=== PATIENT | female | born 1960 | race Caucasian/White ===

== ENCOUNTER 2020-06-17 11:19 | Emergency (ER) | payer MEDICAID, OTHER ==
[~2020-06-17] VITALS: Ht 162.6 cm; Wt 82.0 kg
[2020-06-17] MEDS ORDERED: MAGNESIUM/ALUMINUM HYDROXIDE/SIMETHICONE 30ML UDC PO STA (11:51)
[2020-06-17] MEDS ORDERED: VISCOUS LIDOCAINE 2% 15 ML UDC PO STA (11:51)
[2020-06-17] MEDS ORDERED: LACTATED RINGERS 1,000 ML IV STA (11:53)
[2020-06-17] MEDS ORDERED: SODIUM CHLORIDE 0.9% 1,000 ML IV ONE (12:00)
[2020-06-17 12:41] LABS: BASOPHILS % 0.5 % (0.0-2.0); EOSINOPHILS % 3.9 % (0.0-5.0); HEMATOCRIT. 28.9 % (36.0-48.0); HEMOGLOBIN. 8.7 g/dL (12.0-16.0); LYMPHOCYTES % 23.9 % (20.0-50.0); MEAN CORPUSCULAR HEMOGLOBIN 17.1 pg (28.0-32.0); MEAN CORPUSCULAR VOLUME 56.8 fL (81.0-99.0); MEAN PLATELET VOLUME 8.6 fl (7.4-10.4); MONOCYTES % 8.1 % (2.0-8.0); NEUTROPHILS % 63.6 % (40.0-76.0); PLATELET 286 x1000/uL (130-400); RED BLOOD CELL COUNT 5.09 mill/uL (4.2-5.4); RED CELL DISTRIBUTION WIDTH 21.3 % (11.6-14.6)
[2020-06-17] MEDS ORDERED: ASPIRIN 325MG TABLET PO ONE (12:45)
[2020-06-17 12:48] LABS: CHLORIDE 106 mEq/L (98-107)
[2020-06-17 12:51] LABS: PROTHROMBIN TIME 10.2 sec (9.6-11.0)
[2020-06-17] MEDS ORDERED: MIDAZOLAM HCL 2 MG/2 ML VIAL IV ONE (13:00)
[2020-06-17 13:02] LABS: PLATELET ESTIMATE NORMAL
[2020-06-17] MEDS ORDERED: HYDROCODONE/ACETAMINOPHEN 5/325MG TABLET PO ONE (14:45)
[2020-06-17 15:29] LABS: CLARITY URINE TURBID (CLEAR); COLOR URINE YELLOW (YELLOW); KETONES URINE TRACE (NEGATIVE); LEUKOCYTE ESTERASE URINE 3+ (NEGATIVE); NITRITE URINE NEGATIVE (NEGATIVE); OCCULT BLOOD URINE 1+ (NEGATIVE); PH URINE 6.5 (4.5-8.0); PROTEIN URINE 1+ (NEGATIVE); SPECIFIC GRAVITY URINE 1.021 (1.005-1.030); UROBILINOGEN URINE 0.2 E.U./dL (0.2-1.0)
[2020-06-17] MEDS ORDERED: CEFTRIAXONE 1 G PREMIX 50 ML IV ONE (16:45)
[2020-06-17 20:36] VITALS: BP 138/68
== END 2020-06-17 20:34 ==
LOC: ER 11:19
DX: N12 Tubulo-interstitial nephritis, not specified as acute or chronic (principal); R07.89 Other chest pain; J44.9 Chronic obstructive pulmonary disease, unspecified; F14.10 Cocaine abuse, uncomplicated; Z88.8 Allergy status to other drugs, medicaments and biological substances
CPT/HCPCS: 36415; 71045; 76700; 80053; 81003; 83690; 84484; 85025; 85610; 87086; 93005; 96361; 96365; 99285; J0696; J7120; J7030

== ENCOUNTER 2021-01-02 14:51 | Inpatient (IN) | payer MEDICAID ==
[~2021-01-02] VITALS: Ht 160 cm; Wt 63.5 kg
[2021-01-02 15:38] LABS: CHLORIDE 108 mEq/L (98-107)
[2021-01-02 15:39] LABS: BASOPHILS % 1.1 % (0.0-2.0); EOSINOPHILS % 3.8 % (0.0-5.0); LYMPHOCYTES % 24.9 % (20.0-50.0); MEAN CORPUSCULAR HEMOGLOBIN 15.8 pg (28.0-32.0); MEAN CORPUSCULAR VOLUME 54.6 fL (81.0-99.0); MEAN PLATELET VOLUME 8.6 fl (7.4-10.4); MONOCYTES % 7.6 % (2.0-8.0); NEUTROPHILS % 62.6 % (40.0-76.0); PLATELET 298 x1000/uL (130-400); RED BLOOD CELL COUNT 3.66 mill/uL (4.2-5.4); RED CELL DISTRIBUTION WIDTH 21.9 % (11.6-14.6)
[2021-01-02 15:45] LABS: HEMOGLOBIN. 5.8 g/dL (12.0-16.0)
[2021-01-02 16:15] LABS: PLATELET ESTIMATE NORMAL
[2021-01-02 22:00] VITALS: BP 148/88
[2021-01-02] MEDS ORDERED: ACETAMINOPHEN 325MG TABLET PO PRN (22:15)
[2021-01-02] MEDS ORDERED: ONDANSETRON HCL 4MG/2ML INJ IV PRN (22:15)
[2021-01-03] VITALS: BP 142/75
[2021-01-03 00:51] LABS: TOTAL IRON BINDING CAPACITY 458 ug/dL (250-450)
[2021-01-03 03:38] LABS: METHADONE URINE SCREEN NEGATIVE (NEGATIVE)
[2021-01-03 03:39] LABS: *AMPHETAMINES SCREEN URINE NEGATIVE (NEGATIVE); *BARBITURATES SCREEN URINE NEGATIVE (NEGATIVE); *BENZODIAZEPINES SCREEN URINE NEGATIVE (NEGATIVE); *COCAINE SCREEN URINE PRESUMTIVE POSITIVE (NEGATIVE); CANNABINOID URINE SCREEN PRESUMTIVE POSITIVE (NEGATIVE); OPIATES URINE SCREEN NEGATIVE (NEGATIVE); PHENCYCLIDINE URINE SCREEN NEGATIVE (NEGATIVE)
[2021-01-03 04:00] VITALS: BP 121/61
[2021-01-03 08:00] VITALS: BP 119/56
[2021-01-03] MEDS: PANTOPRAZOLE SODIUM 40 MG/VIAL IV SCH (09:30)
[2021-01-03 11:01] LABS: BASOPHILS % 0.7 % (0.0-2.0); EOSINOPHILS % 5.7 % (0.0-5.0); HEMATOCRIT. 23.7 % (36.0-48.0); HEMOGLOBIN. 7.1 g/dL (12.0-16.0); LYMPHOCYTES % 26.3 % (20.0-50.0); MEAN CORPUSCULAR HEMOGLOBIN 16.6 pg (28.0-32.0); MEAN CORPUSCULAR VOLUME 55.3 fL (81.0-99.0); MEAN PLATELET VOLUME 8.8 fl (7.4-10.4); MONOCYTES % 9.4 % (2.0-8.0); NEUTROPHILS % 57.9 % (40.0-76.0); PLATELET 342 x1000/uL (130-400); RED BLOOD CELL COUNT 4.29 mill/uL (4.2-5.4); RED CELL DISTRIBUTION WIDTH 23.6 % (11.6-14.6)
[2021-01-03 11:14] LABS: CHLORIDE 104 mEq/L (98-107)
[2021-01-03 11:23] LABS: CREATINE KINASE 36 IU/L (26-192)
[2021-01-03 11:26] LABS: CREATINE KINASE MB FRACTION 2.1 ng/mL (0.5-3.6)
[2021-01-03 12:00] VITALS: BP 122/72
[2021-01-03] MEDS ORDERED: POTASSIUM CHLORIDE 20MEQ TABLET SR PO NR ×2 (13:00→16:00)
[2021-01-03] MEDS ORDERED: DOCUSATE SODIUM 250MG CAPSULE PO ONE (15:00)
[2021-01-03] MEDS ORDERED: DOCUSATE SODIUM 100MG CAPSULE PO NR (15:15)
[2021-01-03] MEDS ORDERED: DOCUSATE SODIUM 100MG CAPSULE PO PRN (15:15)
[2021-01-03] MEDS ORDERED: DOCUSATE SODIUM 100MG CAPSULE PO SCH (15:15)
[2021-01-03 15:58] LABS: CREATINE KINASE MB FRACTION 1.8 ng/mL (0.5-3.6)
[2021-01-03 16:00] VITALS: BP 127/70
[2021-01-03 16:42] LABS: VITAMIN B12 SERUM 321 pg/mL (211-911)
[2021-01-03] MEDS: IRON SUCROSE COMPLEX 100 MG/5 ML ML IV SCH (17:13)
[2021-01-03 19:11] LABS: FERRITIN < 5 ng/mL (10-291)
[2021-01-03 20:00] VITALS: BP 144/68
[2021-01-03 20:14] LABS: HEMATOCRIT 24.8 % (36.0-48.0); HEMOGLOBIN 7.5 g/dL (12.0-16.0)
[2021-01-04] VITALS (10 sets, daily range): BP systolic 120–142; BP diastolic 54–84
[2021-01-04 06:07] LABS: CHLORIDE 102 mEq/L (98-107)
[2021-01-04 06:37] LABS: BASOPHILS % 0.5 % (0.0-2.0); EOSINOPHILS % 4.2 % (0.0-5.0); HEMATOCRIT. 24.7 % (36.0-48.0); HEMOGLOBIN. 7.3 g/dL (12.0-16.0); LYMPHOCYTES % 13.8 % (20.0-50.0); MEAN CORPUSCULAR HEMOGLOBIN 16.4 pg (28.0-32.0); MEAN CORPUSCULAR VOLUME 55.4 fL (81.0-99.0); MEAN PLATELET VOLUME 8.5 fl (7.4-10.4); MONOCYTES % 6.2 % (2.0-8.0); NEUTROPHILS % 75.3 % (40.0-76.0); PLATELET 317 x1000/uL (130-400); RED BLOOD CELL COUNT 4.46 mill/uL (4.2-5.4); RED CELL DISTRIBUTION WIDTH 23.3 % (11.6-14.6)
[2021-01-04] MEDS ORDERED: DOCUSATE SODIUM 250MG CAPSULE PO PRN (09:00)
[2021-01-04] MEDS: PANTOPRAZOLE SODIUM 40 MG/VIAL IV SCH (09:05)
[2021-01-04] MEDS: IPRATROPIUM/ALBUTEROL 0.5-3(2.5)MG/3ML NEB HHN SCH ×2 (13:02→17:43)
[2021-01-04] MEDS: IRON SUCROSE COMPLEX 100 MG/5 ML ML IV SCH (16:30)
== END 2021-01-04 19:55 | disposition home or self-care (01) | DRG 816 ==
LOC: ER 14:51 → 6WST 17:34 → EDBEDREQ 17:39 → ENRESERV 19:53
PROVIDERS: ADMIT Internal Medicine; ATTEND Internal Medicine
PROC: 30233N1 Transfusion of Nonautologous Red Blood Cells into Peripheral Vein, Percutaneous Approach (ICD-10-PCS; principal; 2021-01-02)
DX: T40.5X1A Poisoning by cocaine, accidental (unintentional), initial encounter (principal); E87.8 Other disorders of electrolyte and fluid balance, not elsewhere classified; I11.0 Hypertensive heart disease with heart failure; I50.30 Unspecified diastolic (congestive) heart failure; D50.9 Iron deficiency anemia, unspecified; F12.90 Cannabis use, unspecified, uncomplicated; D25.9 Leiomyoma of uterus, unspecified; E87.6 Hypokalemia; R07.89 Other chest pain; F14.10 Cocaine abuse, uncomplicated; J44.9 Chronic obstructive pulmonary disease, unspecified; I73.9 Peripheral vascular disease, unspecified; F17.210 Nicotine dependence, cigarettes, uncomplicated; Z79.899 Other long term (current) drug therapy; Z71.51 Drug abuse counseling and surveillance of drug abuser; Z86.73 Personal history of transient ischemic attack (TIA), and cerebral infarction without residual deficits; Z71.6 Tobacco abuse counseling; Y92.89 Other specified places as the place of occurrence of the external cause
CPT/HCPCS: 36415; 71045; 76830; 76856; 80048; 80053; 80305; 82550; 82553; 82607; 82728; 82746; 83540; 83550; 83880; 84484; 85014; 85018; 85025; 86850; 86900; 86920; 93005; 93306; 93970; 94640; 99291; C9113; P9016; P9021

== ENCOUNTER 2023-03-19 17:06 | Emergency (ER) | payer OTHER ==
[~2023-03-19] VITALS: Ht 167.6 cm; Wt 75.0 kg
[~2023-03-19 17:06] MED LIST: ALBU90AE INH; IPRA3AMP9 NEB; MED4 MT; NICO-789 TD
[2023-03-19] MEDS ORDERED: IPRATROPIUM/ALBUTEROL 0.5-3(2.5)MG/3ML NEB HHN NR (18:30)
[2023-03-19] MEDS ORDERED: GUAIFENESIN 200MG/10ML SUGAR FREE UDC PO NR (18:30)
[2023-03-19] MEDS ORDERED: ONDANSETRON HCL 4MG/2ML INJ IV ONE (19:00)
[2023-03-19] MEDS ORDERED: METHYLPREDNISOLONE SOD SUCC 40MG VIAL IV ONE (19:00)
[2023-03-19 19:45] VITALS: PULSE 95; RESP 24; O2SAT 95
[2023-03-19 20:11] LABS: BASOPHILS % 0.4 % (0.0-2.0); EOSINOPHILS % 0.5 % (0.0-5.0); HEMATOCRIT. 25.7 % (36.0-48.0); HEMOGLOBIN. 7.7 g/dL (12.0-16.0); LYMPHOCYTES % 14.2 % (20.0-50.0); MEAN CORPUSCULAR HGB CONC 29.9 g/dL (31.0-37.0); MEAN PLATELET VOLUME 8.3 fl (7.4-10.4); MONOCYTES % 7.7 % (2.0-8.0); NEUTROPHILS % 77.2 % (40.0-76.0); PLATELET 289 x1000/uL (130-400); RED BLOOD CELL COUNT 4.51 mill/uL (4.2-5.4); RED CELL DISTRIBUTION WIDTH 21.8 % (11.6-14.6); WHITE BLOOD COUNT 12.4 x1000/uL (4.5-11.0)
[2023-03-19 20:17] LABS: DIFFERENTIAL COMMENT 1
[2023-03-19 20:18] LABS: ADD RBC MORPHOLOGY YES
[2023-03-19 20:20] LABS: CHLORIDE 105 mEq/L (98-107); INDEX HEMOLYSI 1 (1-3); INDEX ICTERIC 1 (1-4); INDEX LIPEMIC 1 (1-3); POTASSIUM 3.3 mEq/L (3.5-5.1); SODIUM 137 mEq/L (136-145)
[2023-03-19 20:30] LABS: ALANINE AMINOTRANSFERASE 24 IU/L (13-61); ALBUMIN 3.3 g/dL (3.4-5.0); ASPARTATE AMINOTRANSFERASE 21 IU/L (15-37); BILIRUBIN TOTAL 0.8 mg/dL (0.1-1.0); CALCIUM 8.6 mg/dL (8.5-10.1); CARBON DIOXIDE 30 mEq/L (21-32); CREATININE 0.5 mg/dL (0.6-1.3); GLUCOSE 99 mg/dL (70-105); PROTEIN TOTAL 6.2 g/dL (6.0-8.3); UREA NITROGEN BLOOD 7 mg/dL (7-21)
[2023-03-19 22:18] LABS: MICROCYTOSIS 3+; PLATELET ESTIMATE NORMAL
[2023-03-19 22:19] LABS: ANISOCYTOSIS 2+; HYPOCHROMASIA 2+; OVALOCYTES 1+; TARGET CELLS 1+
[2023-03-20] MEDS ORDERED: METHYLPREDNISOLONE SOD SUCC 125MG VIAL IV NR (00:45)
[2023-03-20 10:30] VITALS: BP 108/54; PULSE 81; RESP 15; TEMP 97.9
== END 2023-03-20 11:06 | disposition short-term general hospital (02) ==
LOC: ER 17:06
DX: R06.02 Shortness of breath (principal); R07.89 Other chest pain; I11.0 Hypertensive heart disease with heart failure; I50.9 Heart failure, unspecified; J44.9 Chronic obstructive pulmonary disease, unspecified; E11.9 Type 2 diabetes mellitus without complications; Z86.73 Personal history of transient ischemic attack (TIA), and cerebral infarction without residual deficits; F17.210 Nicotine dependence, cigarettes, uncomplicated; F12.10 Cannabis abuse, uncomplicated; Z20.822 Contact with and (suspected) exposure to COVID-19
CPT/HCPCS: 80053; 85025; 36415; 71045; 94640; 93005; 96374; 99285; 96375; 87426; J2405; Z7610 ×5; J2930; C9803; 94664